=== PATIENT | male | born 1940 | race Caucasian/White ===

== ENCOUNTER → 2024-09-19 12:55 | Outpatient (CLI) | payer MEDICARE, SELFPAY ==
--- NOTE | 2024-09-19 12:56 | DI.MRI.S_ITS ---
PROCEDURE: MR ABDOMEN LIVER PROTOCOL INDICATIONS: LIVER MASS TECHNIQUE: Coronal HASTE, axial 2D FLASH in- and bar-sd-caksg; axial breath-hold T2 FSE. Dynamic axial VIBE during the administration of contrast; post-contrast coronal VIBE or 2D FLASH with fat saturation from the hepatic dome to the iliac crests. Optional diffusion weighted imaging and ADC may be performed. COMPARISON: None. FINDINGS: Image quality: Diagnostic. Lung bases: Trace pleural effusions. Liver: Segment 3 hemangioma measuring 2 cm, (12/42). Gallbladder: No gallstones or wall thickening. Biliary ducts: No biliary dilation. Pancreas: No ductal dilation. Spleen: Size is within normal limits. Adrenal Glands: No adrenal nodules. Kidneys and Ureters: No hydronephrosis. No solid mass. No complex renal cystic lesion which requires follow up. Stomach and Bowel: Normal colonic caliber, without significant wall thickening. Peritoneum: Moderate volume of ascites. Ventral Wall: No hernia. Abdominal Nodes: No retroperitoneal or mesenteric adenopathy by size criteria. Vessels: Aorta and inferior vena cava are normal in size. No filling defect in the portal vein. Bones: No aggressive osseous abnormality. Mild scoliosis. IMPRESSION: 1. Trace pleural effusions. Moderate volume of ascites. 2. Left liver benign hemangioma measuring 2 cm. Dictated by: Josef Tavares M.D. on 09/19/2024 at 21:03 Approved by: Josef Tavares M.D. on 09/19/2024 at 21:21
== END ==
PROVIDERS: PCP Student in an Organized Health Care Education/Training Program; Referring Provider Student in an Organized Health Care Education/Training Program; Visit Provider Student in an Organized Health Care Education/Training Program
DX: R16.0 Hepatomegaly, not elsewhere classified (principal); R18.8 Other ascites; D18.03 Hemangioma of intra-abdominal structures
CPT/HCPCS: 74183; A9579

== ENCOUNTER 2025-04-21 13:23 | Outpatient (CLI) | payer MEDICARE, SELFPAY ==
--- NOTE | 2025-04-21 13:24 | DI.US.S_ITS ---
PROCEDURE: US PARACENTESIS W/ALBUMIN INDICATIONS: . TECHNIQUE: The indications, alternatives, benefits, risks, and complications of the procedure were explained to the patient. Written informed consent was obtained and placed in the chart. The abdomen and pelvis were examined sonographically, and an appropriate site was chosen for paracentesis. The skin was prepared and draped in the usual sterile fashion, and 1% lidocaine was infiltrated from the skin down through the peritoneal surface. A 19-gauge catheter-covered needle was then introduced into the peritoneal space, the catheter was advanced and the needle was withdrawn, and thereafter peritoneal fluid was withdrawn. The catheter was then removed and a dressing was applied. The fluid was discarded if the clinician did not order diagnostic testing of the fluid. COMPARISON: None. FINDINGS: Access site: Right lower quadrant Needle: One-Step centesis catheter with introducer needle. Fluid volume and description: 3100 cc red Fluid sent for diagnostic testing: No Medications: 1% lidocaine for local anaesthesia. Complications: None. IMPRESSION: Successful ultrasound-guided paracentesis. Dictated by: Blanche Newman M.D. on 04/21/2025 at 16:41 Approved by: Blanche Newman M.D. on 04/21/2025 at 16:41
[2025-04-21 13:50] VITALS: BP 113/72; PULSE 70; RESP 16; TEMP 36.2; O2SAT 97
[2025-04-21 14:20] LABS: Hematocrit 40.6 % (41-53); Hemoglobin 13.2 g/dL (13.5-17.5); Mean Corpuscular HGB Conc 32.6 % (30-36); Mean Corpuscular Hemoglobin 25.4 PG (26-34); Mean Corpuscular Volume 77.8 fL (80-100); Platelet Count 494 X10^3/uL (150-400)
[2025-04-21 14:36] LABS: INR 1.0 (0.9-1.3); Prothrombin Time 11.8 SECONDS (9.4-12.5)
[2025-04-21 14:51] VITALS: BP 118/78; PULSE 67; RESP 16; O2SAT 97
[2025-04-21 15:00] VITALS: BP 113/78; PULSE 64; RESP 16; O2SAT 96
[2025-04-21 15:15] VITALS: BP 119/80; PULSE 63; RESP 16; O2SAT 97
[2025-04-21 15:30] VITALS: BP 106/72; PULSE 62; RESP 16; O2SAT 97
== END 2025-04-21 15:42 | disposition home or self-care (01) ==
LOC: US 13:23
PROVIDERS: Radiology Neuroradiology; PCP Student in an Organized Health Care Education/Training Program; Referring Provider Student in an Organized Health Care Education/Training Program; Visit Provider Student in an Organized Health Care Education/Training Program
DX: R18.8 Other ascites (principal)
CPT/HCPCS: 49083; 85027; 85610

== ENCOUNTER 2025-04-25 07:44 | Emergency (ER) | payer MEDICARE, SELFPAY ==
[2025-04-25] VITALS (8 sets, daily range): BP systolic 100–121; BP diastolic 69–80; PULSE 63–70; RESP 18; TEMP 36.6; O2SAT 98–100; BMI 20.7
--- NOTE | 2025-04-25 07:56 | ED_ITS ---
HPI - Abdominal Pain
--- NOTE | 2025-04-25 07:56 | ED.ABDPAIN ---
HPI - Abdominal Pain General Chief Complaint: Abdominal Pain Stated Complaint: No apt for Paracentesis , Told to come to the ER Time Seen by Provider: 04/25/25 07:50 History of Present Illness HPI narrative: 84-year-old gentleman currently being worked up for cancer and is seeing a account clerk but appointment not until June since today for possible paracentesis. Patient had paracentesis done on Monday but they were unable to get much fluid off of him due to bowel interference. Denies any active chest pain, abdominal pain, fever, chills, body aches, nausea, vomiting, diarrhea, urinary complaints. Other than what is stated 14 point review of system is negative. Related Data Home Medications ?Medication ?Instructions ?Recorded ?Confirmed lovastatin 20 mg tablet 20 mg PO HS ##0 04/19/16 02/24/23 losartan 25 mg tablet 25 mg PO DAILY 02/24/23 02/24/23 Allergies Allergy/AdvReac Type Severity Reaction Status Date / Time No Known Allergies Allergy Uncoded 04/25/25 07:54 Review of Systems Review of Systems ROS Unobtainable: All systems reviewed & are unremarkable except as noted in HPI and below Exam Narrative Exam Narrative: GENERAL: [84] year old patient appears stated age. Well-developed patient, in mild distress. HEAD: Atraumatic. Normocephalic. EYES: Pupils equal round and reactive. Extraocular motions intact. No scleral icterus. No injection or drainage. ENT: Nose without bleeding, purulent drainage. Throat without erythema, tonsillar hypertrophy or exudate. Airway patent. NECK: Trachea midline. Non tender CARDIOVASCULAR: Regular rate and rhythm without murmurs, gallops, or rubs. RESPIRATORY: Clear to auscultation. Breath sounds equal bilaterally. No wheezes, rales, or rhonchi. GASTROINTESTINAL: Abdomen distended no rebound or rigidity or guarding EXTREMITIES: No edema or joint tenderness. BACK: Nontender without deformity or crepitance. No flank tenderness. NEURO: AOx3. SKIN: No rash or erythema of visible areas MDM - Abdominal Pain MDM Narrative Medical decision making narrative: All lab work, vital signs, nurse triage note, medication list, previous ER visits, and all imaging studies reviewed. central sterile supply technician notified me no fluid to drain all bowel that is distended. WBC 6.0 Hg 12.9 platelet 442 INR 1.1 sodium 129 has not 4.9 chloride 96 CO2 24 BUN 28 and 1.1 glucose 124 LFTs normal Discharge Plan Departure Patient Disposition: Home Clinical Impression: Abdominal distension Instructions: DI for Abdominal Pain-Adult Activity Restrictions/Additional Instructions: Return with new or worsening symptoms. Follow up with oncologist at next scheduled appointment. Follow up for next paracentesis appointment. Prescriptions: No Action losartan 25 mg tablet 25 mg PO DAILY lovastatin 20 MG tablet 20 mg PO HS Qty: 0 Referrals: Sandra Fitzpatrick MD [Primary Care Provider, Family Practice] Stand Alone Forms: Patient Portal/API
--- NOTE | 2025-04-25 08:00 | DI.US.S_ITS ---
PROCEDURE: US ABDOMEN LIMITED
[2025-04-25 08:33] LABS: Add Manual Diff / Slide Review NO; Hematocrit 38.9 % (41-53); Hemoglobin 12.9 g/dL (13.5-17.5); Lymphocytes Absolute Auto 300 /uL (1100-4500); Mean Corpuscular HGB Conc 33.3 % (30-36); Mean Corpuscular Hemoglobin 25.9 PG (26-34); Mean Corpuscular Volume 77.7 fL (80-100); Platelet Count 442 X10^3/uL (150-400)
[2025-04-25 08:47] LABS: INR 1.1 (0.9-1.3); Prothrombin Time 12.3 SECONDS (9.4-12.5)
[2025-04-25 08:50] LABS: Alanine Aminotransferase 25 IU/L (<50); Albumin 3.0 g/dL (3.5-5.0); Albumin Globulin Ratio 1.0 (1.0-2.8); Alkaline Phosphatase 78 U/L (38-126); Blood Urea Nitrogen 28 mg/dL (9-20); Calcium 8.6 mg/dL (8.4-10.2); Carbon Dioxide 24 mmol/L (22-32); Chloride 96 mmol/L (98-107); Estimated Glomerular Filt Rate > 60 mL/min (>60); Globulin 3.1 g/dL (1.7-4.1); Glucose 124 mg/dL (70-99); HEMOLYSIS < 15 (0-50); Potassium 4.4 mmol/L (3.4-5.1); Sodium 129 mmol/L (137-145); Total Protein 6.1 g/dL (6.3-8.2)
== END 2025-04-25 09:55 | disposition home or self-care (01) ==
PROVIDERS: Emergency Provider Family Medicine; PCP Student in an Organized Health Care Education/Training Program
DX: R14.0 Abdominal distension (gaseous) (principal)
CPT/HCPCS: 36415; 76705; 80053; 85025; 85610; 99281; 99284

== ENCOUNTER 2025-04-26 17:18 | Emergency (ER) | payer MEDICARE, SELFPAY ==
[2025-04-26] VITALS (16 sets, daily range): BP systolic 91–111; BP diastolic 59–77; PULSE 61–92; RESP 16–29; TEMP 36.5; O2SAT 92–97; BMI 19.9
--- NOTE | 2025-04-26 | DI.US.S_ITS ---
PROCEDURE: US ABDOMEN LIMITED
--- NOTE | 2025-04-26 17:30 | ED.WEAKNESS ---
HPI - Weakness <Varinder Hernandez, DO - Last Filed: 04/26/25 18:36> General Chief complaint: Weakness Stated complaint: Weakness, dehydrated, unable to eat, vomitting Time Seen by Provider: 04/26/25 17:25 History of Present Illness HPI Narrative: 84-year-old male currently being worked up for cancer has a upcoming art dealer appointment June 04 was seen by me yesterday for possible paracentesis but only bowel distention was seen on ultrasound. He presents today with weakness shortness of breath no energy and decreased appetite. Denies fever, chills, back pain, abdominal pain, chest pain, cough, sore throat, urinary complaints. Other than what is stated 14 point review of system is negative. Related Data Home Medications ?Medication ?Instructions ?Recorded ?Confirmed lovastatin 20 mg tablet 20 mg PO HS ##0 04/19/16 02/24/23 losartan 25 mg tablet 25 mg PO DAILY 02/24/23 02/24/23 Previous Rx's ?Medication ?Instructions ?Recorded ondansetron HCl 4 mg tablet 4 mg PO Q6H PRN nausea and 04/25/25 vomiting #30 tabs Allergies Allergy/AdvReac Type Severity Reaction Status Date / Time No Known Allergies Allergy Uncoded 04/25/25 07:54 Review of Systems <Varinder Hernandez, DO - Last Filed: 04/26/25 18:36> Review of Systems ROS Unobtainable: All systems reviewed & are unremarkable except as noted in HPI and below Exam <Varinder Hernandez, DO - Last Filed: 04/26/25 18:36> Narrative Exam Narrative: GENERAL: [84] year old patient appears stated age. Thin appearing patient, in mild distress. HEAD: Atraumatic. Normocephalic. EYES: Pupils equal round and reactive. Extraocular motions intact. No scleral icterus. No injection or drainage. ENT: Nose without bleeding, purulent drainage. Throat without erythema, tonsillar hypertrophy or exudate. Airway patent. NECK: Trachea midline. Non tender CARDIOVASCULAR: Regular rate and rhythm without murmurs, gallops, or rubs. RESPIRATORY: Clear to auscultation. Breath sounds equal bilaterally. No wheezes, rales, or rhonchi. GASTROINTESTINAL: Abdomen firm distended but no peritoneal signs no r/r/g. EXTREMITIES: No edema or joint tenderness. BACK: Nontender without deformity or crepitance. No flank tenderness. NEURO: AOx3. SKIN: No rash or erythema of visible areas Initial Vital Signs Initial Vital Signs: Vital Signs Pulse Rate 90 04/26/25 17:27 Pulse Oximetry 93 04/26/25 17:27 <Gatito Leach MD - Last Filed: 04/26/25 23:28> Initial Vital Signs Initial Vital Signs: Vital Signs Pulse Rate 90 04/26/25 17:27 Pulse Oximetry 93 04/26/25 17:27 Course <Varinder Hernandez DO - Last Filed: 04/26/25 18:36> Orders Ordered: ED Orders 04/26/25 17:37 Complete Blood Count AUTO DIFF Stat Comprehensive Metabolic Panel Stat Lipase Stat 04/26/25 18:34 CT abdomen pelvis w con Stat 04/26/25 18:35 EKG-12 Lead Stat Ondansetron HCl (Ondansetron 4 Mg/2 Ml Inj) 4 mg IV NOW PRN PRN Reason: Nausea And Vomiting Ondansetron HCl (Ondansetron 4 Mg Odt) 4 mg PO NOW PRN PRN Reason: Nausea And Vomiting Discontinued Medications Sodium Chloride (Normal Saline 0.9%) 500 mls @ 1,000 mls/hr IV BOLUS ONE Stop: 04/26/25 18:01 Last Infusion: 04/26/25 18:45 Dose: Infused Documented By: Admin: 04/26/25 17:43 Dose: 1,000 mls/hr Documented By: WARREN Vital Signs Vital signs: Vital Signs - 8 hr 04/26/25 17:27 04/26/25 17:28 04/26/25 17:28 Temperature Pulse Rate 90 90 Respiratory Rate Blood Pressure 111/77 Pulse Oximetry 93 92 Oxygen Delivery Method 04/26/25 17:29 04/26/25 17:30 04/26/25 17:30 Temperature 97.7 F Pulse Rate 91 H 92 H Respiratory Rate 16 25 H Blood Pressure 111/77 106/73 Pulse Oximetry 95 92 Oxygen Delivery Method Room Air 04/26/25 18:00 04/26/25 18:00 04/26/25 18:30 Temperature Pulse Rate 87 Respiratory Rate 22 Blood Pressure 104/66 101/75 Pulse Oximetry 93 Oxygen Delivery Method 04/26/25 18:30 04/26/25 19:06 04/26/25 19:06 Temperature Pulse Rate 70 61 Respiratory Rate 27 H 26 H Blood Pressure 108/70 Pulse Oximetry 96 92 Oxygen Delivery Method 04/26/25 19:30 04/26/25 19:30 04/26/25 20:00 Temperature Pulse Rate 62 Respiratory Rate 21 Blood Pressure 103/67 99/67 Pulse Oximetry 97 Oxygen Delivery Method 04/26/25 20:00 04/26/25 20:30 04/26/25 20:30 Temperature Pulse Rate 63 64 Respiratory Rate 19 22 Blood Pressure 110/72 Pulse Oximetry 96 96 Oxygen Delivery Method 04/26/25 21:00 04/26/25 21:00 04/26/25 21:30 Temperature Pulse Rate 63 Respiratory Rate 23 Blood Pressure 101/67 110/64 Pulse Oximetry 94 Oxygen Delivery Method 04/26/25 21:30 04/26/25 22:00 04/26/25 22:00 Temperature Pulse Rate 66 69 Respiratory Rate 27 H 29 H Blood Pressure 101/67 Pulse Oximetry 96 97 Oxygen Delivery Method 04/26/25 22:30 04/26/25 22:30 04/26/25 23:00 Temperature Pulse Rate 70 Respiratory Rate 23 Blood Pressure 107/73 109/75 Pulse Oximetry Oxygen Delivery Method 04/26/25 23:00 04/26/25 23:09 04/26/25 23:09 Temperature Pulse Rate 71 74 Respiratory Rate 26 H 23 Blood Pressure 91/59 L Pulse Oximetry Oxygen Delivery Method <Gatito Leach MD - Last Filed: 04/26/25 23:28> Orders Ordered: ED Orders 04/26/25 17:37 Complete Blood Count AUTO DIFF Stat Comprehensive Metabolic Panel Stat Lipase Stat 04/26/25 18:34 CT abdomen pelvis w con Stat 04/26/25 18:35 EKG-12 Lead Stat Ondansetron HCl (Ondansetron 4 Mg/2 Ml Inj) 4 mg IV NOW PRN PRN Reason: Nausea And Vomiting Ondansetron HCl (Ondansetron 4 Mg Odt) 4 mg PO NOW PRN PRN Reason: Nausea And Vomiting Discontinued Medications Sodium Chloride (Normal Saline 0.9%) 500 mls @ 1,000 mls/hr IV BOLUS ONE Stop: 04/26/25 18:01 Last Infusion: 04/26/25 18:45 Dose: Infused Documented By: Admin: 04/26/25 17:43 Dose: 1,000 mls/hr Documented By: WARREN Vital Signs Vital signs: Vital Signs - 8 hr 04/26/25 17:27 04/26/25 17:28 04/26/25 17:28 Temperature Pulse Rate 90 90 Respiratory Rate Blood Pressure 111/77 Pulse Oximetry 93 92 Oxygen Delivery Method 04/26/25 17:29 04/26/25 17:30 04/26/25 17:30 Temperature 97.7 F Pulse Rate 91 H 92 H Respiratory Rate 16 25 H Blood Pressure 111/77 106/73 Pulse Oximetry 95 92 Oxygen Delivery Method Room Air 04/26/25 18:00 04/26/25 18:00 04/26/25 18:30 Temperature Pulse Rate 87 Respiratory Rate 22 Blood Pressure 104/66 101/75 Pulse Oximetry 93 Oxygen Delivery Method 04/26/25 18:30 04/26/25 19:06 04/26/25 19:06 Temperature Pulse Rate 70 61 Respiratory Rate 27 H 26 H Blood Pressure 108/70 Pulse Oximetry 96 92 Oxygen Delivery Method 04/26/25 19:30 04/26/25 19:30 04/26/25 20:00 Temperature Pulse Rate 62 Respiratory Rate 21 Blood Pressure 103/67 99/67 Pulse Oximetry 97 Oxygen Delivery Method 04/26/25 20:00 04/26/25 20:30 04/26/25 20:30 Temperature Pulse Rate 63 64 Respiratory Rate 19 22 Blood Pressure 110/72 Pulse Oximetry 96 96 Oxygen Delivery Method 04/26/25 21:00 04/26/25 21:00 04/26/25 21:30 Temperature Pulse Rate 63 Respiratory Rate 23 Blood Pressure 101/67 110/64 Pulse Oximetry 94 Oxygen Delivery Method 04/26/25 21:30 04/26/25 22:00 04/26/25 22:00 Temperature Pulse Rate 66 69 Respiratory Rate 27 H 29 H Blood Pressure 101/67 Pulse Oximetry 96 97 Oxygen Delivery Method 04/26/25 22:30 04/26/25 22:30 04/26/25 23:00 Temperature Pulse Rate 70 Respiratory Rate 23 Blood Pressure 107/73 109/75 Pulse Oximetry Oxygen Delivery Method 04/26/25 23:00 04/26/25 23:09 04/26/25 23:09 Temperature Pulse Rate 71 74 Respiratory Rate 26 H 23 Blood Pressure 91/59 L Pulse Oximetry Oxygen Delivery Method MDM - Weakness <Varinder Hernandez, DO - Last Filed: 04/26/25 18:36> Lab Data 04/26/25 17:37 04/26/25 17:37 Labs: Lab Results 04/26/25 Range/Units 17:37 WBC 6.5 (4.5-11.0) X10^3/uL RBC 5.33 (4.5-5.9) X10^6/uL Hgb 14.1 (13.5-17.5) g/dL Hct 41.7 (41-53) % MCV 78.2 L (80-100) fL MCH 26.4 (26-34) PG MCHC 33.7 (30-36) % RDW 20.2 H (11.6-14.8) % Plt Count 475 H (150-400) X10^3/uL Neut % (Auto) 87.3 H (50-75) % Lymph % (Auto) 5.2 L (25-40) % Carlton % (Auto) 7.3 (3-14) % Eos % (Auto) 0.1 L (2-4) % Baso % (Auto) 0.1 (0-2) % Neut # (Auto) 5600 (3974-9009) /uL Lymph # (Auto) 300 L (6238-6893) /uL Carlton # (Auto) 500 (0-900) /uL Eos # (Auto) 0 (0-450) /uL Baso # (Auto) 0 (0-100) /uL Sodium 131 L (137-145) mmol/L Potassium 4.3 (3.4-5.1) mmol/L Chloride 95 L (98-107) mmol/L Carbon Dioxide 25 (22-32) mmol/L BUN 36 H (9-20) mg/dL Creatinine 1.06 (0.66-1.25) mg/dL Estimated GFR > 60 (>60) mL/min BUN/Creatinine Ratio 34.0 H (6-22) Glucose 121 H (70-99) mg/dL Calcium 9.0 (8.4-10.2) mg/dL Total Bilirubin 1.1 (0.2-1.3) mg/dL AST 47 (17-59) IU/L ALT 27 (<50) IU/L Alkaline Phosphatase 80 (38-126) U/L Total Protein 6.5 (6.3-8.2) g/dL Albumin 3.3 L (3.5-5.0) g/dL Globulin 3.2 (1.7-4.1) g/dL Albumin/Globulin Ratio 1.0 (1.0-2.8) Lipase 183 (23-300) U/L MDM Narrative Medical decision making narrative: All lab work, vital signs, nurse triage note, medication list, previous ER visits, and all imaging studies reviewed. Lab work and ultrasound pending. Patient signed out to at shift change pending final disposition. <Gatito Leach MD - Last Filed: 04/26/25 23:28> Lab Data Labs: Lab Results 04/26/25 Range/Units 17:37 WBC 6.5 (4.5-11.0) X10^3/uL RBC 5.33 (4.5-5.9) X10^6/uL Hgb 14.1 (13.5-17.5) g/dL Hct 41.7 (41-53) % MCV 78.2 L (80-100) fL MCH 26.4 (26-34) PG MCHC 33.7 (30-36) % RDW 20.2 H (11.6-14.8) % Plt Count 475 H (150-400) X10^3/uL Neut % (Auto) 87.3 H (50-75) % Lymph % (Auto) 5.2 L (25-40) % Carlton % (Auto) 7.3 (3-14) % Eos % (Auto) 0.1 L (2-4) % Baso % (Auto) 0.1 (0-2) % Neut # (Auto) 5600 (6163-0232) /uL Lymph # (Auto) 300 L (6744-5237) /uL Carlton # (Auto) 500 (0-900) /uL Eos # (Auto) 0 (0-450) /uL Baso # (Auto) 0 (0-100) /uL Sodium 131 L (137-145) mmol/L Potassium 4.3 (3.4-5.1) mmol/L Chloride 95 L (98-107) mmol/L Carbon Dioxide 25 (22-32) mmol/L BUN 36 H (9-20) mg/dL Creatinine 1.06 (0.66-1.25) mg/dL Estimated GFR > 60 (>60) mL/min BUN/Creatinine Ratio 34.0 H (6-22) Glucose 121 H (70-99) mg/dL Calcium 9.0 (8.4-10.2) mg/dL Total Bilirubin 1.1 (0.2-1.3) mg/dL AST 47 (17-59) IU/L ALT 27 (<50) IU/L Alkaline Phosphatase 80 (38-126) U/L Total Protein 6.5 (6.3-8.2) g/dL Albumin 3.3 L (3.5-5.0) g/dL Globulin 3.2 (1.7-4.1) g/dL Albumin/Globulin Ratio 1.0 (1.0-2.8) Lipase 183 (23-300) U/L Imaging Data US - abdomen: Radiologist Impression: Small volume of free fluid in the abdomen and pelvis, without a sufficient pocket for safe paracentesis. 2. Soft tissue material or debris is seen within the ascitic fluid. 3. Gallbladder sludge. CT scan - abdomen/pelvis: Radiologist Impression: 1. Small to moderate volume of ascites. Signs of volume overload including diffuse soft tissue anasarca. There is including diffuse omental edema or soft tissue infiltration. 2. Mildly distended gallbladder. 3. Prostatomegaly. MDM Narrative Medical decision making narrative: All lab work, vital signs, nurse triage note, medication list, previous ER visits, and all imaging studies reviewed. Lab work and ultrasound pending. Patient signed out to at shift change pending final disposition. Patient remained stable as far as vital signs and symptoms during his course here in the ED. [facility] was consulted to transfer the patient for admission for further workup.Dr. Velazquez graciously accepted the patient. CT of the abdomen showed small to moderate volume ascites and signs of volume overload including soft tissue anasarca. The gallbladder is mildly distended and there is prostatomegaly. Ultrasound of the abdomen did not show a safe pocket for paracentesis unfortunately. Discharge Plan Departure Patient Disposition: [facility] Clinical Impression: Anasarca Prescriptions: No Action losartan 25 mg tablet 25 mg PO DAILY lovastatin 20 MG tablet 20 mg PO HS Qty: 0 ondansetron HCl 4 mg tablet 4 mg PO Q6H PRN (Reason: nausea and vomiting) Qty: 30 0RF Referrals: Sandra Fitzpatrick MD [Primary Care Provider, Family Practice]
[2025-04-26] MEDS: SODIUM CHLORIDE 0.9% 500 ML 1000 ML IV (17:43)
--- NOTE | 2025-04-26 18:34 | DI.CT.S_ITS ---
PROCEDURE: CT ABDOMEN PELVIS W CON
[2025-04-26 18:48] LABS: Add Manual Diff / Slide Review NO; Hematocrit 41.7 % (41-53); Hemoglobin 14.1 g/dL (13.5-17.5); Lymphocytes Absolute Auto 300 /uL (1100-4500); Mean Corpuscular HGB Conc 33.7 % (30-36); Mean Corpuscular Hemoglobin 26.4 PG (26-34); Mean Corpuscular Volume 78.2 fL (80-100); Platelet Count 475 X10^3/uL (150-400)
[2025-04-26 18:54] LABS: Alanine Aminotransferase 27 IU/L (<50); Albumin 3.3 g/dL (3.5-5.0); Albumin Globulin Ratio 1.0 (1.0-2.8); Alkaline Phosphatase 80 U/L (38-126); Blood Urea Nitrogen 36 mg/dL (9-20); Calcium 9.0 mg/dL (8.4-10.2); Carbon Dioxide 25 mmol/L (22-32); Chloride 95 mmol/L (98-107); Estimated Glomerular Filt Rate > 60 mL/min (>60); Globulin 3.2 g/dL (1.7-4.1); Glucose 121 mg/dL (70-99); HEMOLYSIS 25 (0-50); Lipase 183 U/L (23-300); Potassium 4.3 mmol/L (3.4-5.1); Sodium 131 mmol/L (137-145); Total Protein 6.5 g/dL (6.3-8.2)
== END 2025-04-26 23:13 | disposition short-term general hospital (02) ==
PROVIDERS: Family Medicine; Emergency Provider Family Medicine; PCP Student in an Organized Health Care Education/Training Program
DX: R60.1 Generalized edema (principal); R06.02 Shortness of breath
CPT/HCPCS: 36415; 74177; 76705; 80053; 83690; 85025; 96360; 99284; J7040; Q9967